=== PATIENT | male | born 1955 | race Caucasian/White ===

== ENCOUNTER 2017-05-25 15:52 | Emergency (ER) | payer OTHER ==
[2017-05-25 16:05] VITALS: BP 135/68
[2017-05-25] MEDS ORDERED: Ibuprofen TAB* 400 MG PO ONE (16:22)
--- NOTE | 2017-05-25 16:35 | UC ---
Lower Extremity/Ankle HPI - HPI Summary HPI Summary: 62 year old male with history of MS, restless leg syndrome here after a fall from a ladder. Reports he landed on his left ankle from a short ladder that was about 2.5 feet high. He reports he couldnt bear weight on the same leg. He hopped on his right foot. No head trauma but noted abrasion to his left hand. Tetanus UTD. - History of Current Complaint Chief Complaint: UCLowerExtremity Stated Complaint: ANKLE INJURY Time Seen by Provider: 05/25/17 16:10 Hx Obtained From: Patient Onset/Duration: Sudden Onset Severity Initially: Mild Aggravating Factor(s): Ambulation Alleviating Factor(s): Rest - Allergies/Home Medications Allergies/Adverse Reactions: Allergies Allergy/AdvReac Type Severity Reaction Status Date / Time Meperidine [From Demerol HCl] Allergy unknown Verified 05/25/17 16:05 reaction PMH/Surg Hx/FS Hx/Imm Hx Previously Healthy: Yes - Surgical History Surgical History: Yes Surgery Procedure, Year, and Place: HERNIA . HERNIA REPAIR 04/24/14. LT ELBOW SURGERY 07/05/14 - Family History Known Family History: Positive: None - Social History Alcohol Use: Daily Alcohol Amount: 1-2 GLASS OF WINE DAILY Substance Use Type: None Smoking Status (MU): Never Smoked Tobacco Have You Smoked in the Last Year: No - Immunization History Most Recent Tetanus Shot: UTD Review of Systems Constitutional: Negative Skin: Negative Eyes: Negative ENT: Negative Respiratory: Negative Cardiovascular: Negative Gastrointestinal: Negative Genitourinary: Negative Motor: Negative Neurovascular: Negative Musculoskeletal: Decreased ROM, Edema Neurological: Negative Psychological: Negative All Other Systems Reviewed And Are Negative: Yes Physical Exam Triage Information Reviewed: Yes Vital Signs: Initial Vital Signs Temp 36.7 C 05/25/17 16:01 Pulse 90 05/25/17 16:01 Resp 18 05/25/17 16:01 BP 135/68 05/25/17 16:01 Pulse Ox 100 05/25/17 16:01 Eye Exam: Normal ENT Exam: Normal Neck exam: Normal Neck: Positive: Nontender Respiratory: Positive: Chest non-tender Cardiovascular: Positive: RRR Abdominal Exam: Normal Abdomen Description: Positive: Nontender, No Organomegaly Musculoskeletal: Positive: Other: - TTP over lateral posterior malleolus, Mild swelling DP/TP intact BCPR pain with ranging over ankle No laceartion or abrasion to foot Left hand dorsal abrasion (ring removed) no tenderness over the area. SILT in s/s/sp/dp/ta No C/T/L spine tenderness, no hip/pelvis tenderness Re-Evaluation - Re-Evaluation First Eval Re-Evaluation Time: 17:20 - Patient has calcaneus fracutre on XR. No evidence of other injury to back, no c/t/l spine tenderness. Lower Extremity Course/Dx - Course Course Of Treatment: Patient with calcaneus. CT done for follow up. Will apply CAM boot, and instructions for NWB status until ortho evaluation. - Differential Dx/Diagnosis Differential Diagnosis/HQI/PQRI: Contusion, Sprain, Strain Provider Diagnoses: Left ankle sprain. ICE. Elevate. Pain meds. XR. Reassess Discharge - Discharge Plan Condition: Good Disposition: HOME Prescriptions: Ibuprofen TAB* [Motrin TAB* 600 MG] 600 mg PO Q6H PRN 28 Days #20 tab PRN Reason: Pain - Mild To Moderate oxyCODONE/Acetamin 5/325 MG* [Percocet 5/325 TAB*] 2 tab PO Q8H PRN 5 Days #12 tab MDD 4 PRN Reason: Pain - Moderate To Severe Patient Education Materials: Calcaneal Fracture (ED) Referrals: Major Reyes MD [Primary Care Provider] -
--- NOTE | 2017-05-25 17:09 | RAD ---
INDICATION: Left ankle injury. TECHNIQUE: 3 views of the left ankle were obtained. FINDINGS: There is diffuse soft tissue swelling. There is a comminuted impacted fracture of the calcaneus. No additional fractures are seen. IMPRESSION: COMMINUTED FRACTURE OF THE CALCANEUS. RECOMMEND CT IMAGING FOR FURTHER EVALUATION.
--- NOTE | 2017-05-25 17:36 | RAD ---
INDICATION: Traumatic left calcaneal fracture. COMPARISON: Comparison is made with a prior x-ray study of the left ankle of the same date. TECHNIQUE: Contiguous axial sections were obtained of the left ankle. Images were reconstructed in the sagittal and coronal planes. FINDINGS: There is diffuse soft tissue swelling present. There is a severely comminuted fracture of the calcaneus with the fracture involving the anterior, mid and posterior aspects of the calcaneus. There are fracture lines in the transverse and horizontal planes and there is impaction of the fracture fragments. The fracture extends to the subtalar joint. There is depression of the articular surface of the calcaneus at the level of the posterior facet of approximately 3 mm. The talus appears intact. No additional fractures are noted. IMPRESSION: SEVERELY COMMINUTED DISPLACED INTRA-ARTICULAR FRACTURE OF THE CALCANEUS WITH DEPRESSION OF THE POSTERIOR ARTICULAR SURFACE OF THE CALCANEUS ALONG THE POSTERIOR ASPECT OF THE SUBTALAR JOINT.
== END 2017-05-25 18:00 | disposition home or self-care (01) ==
LOC: UCEAST 15:52
DX: S93.402A Sprain of unspecified ligament of left ankle, initial encounter (principal); S92.062A Displaced intraarticular fracture of left calcaneus, initial encounter for closed fracture; W11.XXXA Fall on and from ladder, initial encounter; Y92.9 Unspecified place or not applicable; Z88.5 Allergy status to narcotic agent
CPT/HCPCS: 99213; A9270-GY; G0463

== ENCOUNTER → 2017-06-03 07:39 | Day surgery (SDC) | payer OTHER ==
[~2017-06-03 07:39] MED LIST: Acetaminophen TAB* 325 MG ONE; Acetaminophen TAB* 325 MG PO ONE; Buffered Lidocaine 0.9% SYRIN* 5 ML/SYR SYRINGE INTRADERM ONE; Buffered Lidocaine 0.9% SYRIN* 5 ML/SYR SYRINGE ONE; Bupivacaine 0.25% SDV* 30 ML ONE; Bupivacaine 0.5% SDV PF* 30 ML VIAL ONE; Desflurane* 240 ML INH ONE; DiMENhydriNATE IV* 50 MG/ML VIAL IV PUSH PRN; EPHEDrine (Pressors)* 50 MG/ML VIAL ONE; Famotidine IV* 10 MG/ML 2 ML (20 mg) IV ONE; Famotidine IV* 10 MG/ML 2 ML (20 mg) ONE; HYDROcodone/ACETAMIN 5-325 MG* 1 TAB PO PRN; HYDROmorphone INJ* 1 MG/ML CARPUJECT SYRINGE IV PRN; Ibuprofen TAB* 600 MG PO PRN; Ketorolac INJ* 30 MG/ML 1 ML VIAL ONE; Lidocaine 1% INJ* 10 MG/ML 30 ML SDV ONE; Lidocaine 2% PF * 5 ML VIAL ONE; Midazolam* 1 MG/ML 2 ML VIAL (2 MG) ONE; Ondansetron INJ* 2 MG/ML VIAL IV PRN; Ondansetron INJ* 2 MG/ML VIAL ONE; Rocuronium* 10 MG/ML VIAL ONE; Sodium Citrate/Citric Acid* 15 ML UDC ONE; Sodium Citrate/Citric Acid* 15 ML UDC PO ONE; Sterile Water for Inj* 10 ML ONE; ceFAZolin 2 GM PREMIX (*) 2 GM/50 ML BAG IVPB ONE; fentaNYL* 50 MCG/ML 2 ML VIAL (100 MCG VIAL) IV PRN; fentaNYL* 50 MCG/ML 2 ML VIAL (100 MCG VIAL) ONE; oxyCODONE TAB* 5 MG TAB PO PRN; oxyCODONE/Acetamin 5/325 MG* TAB PO PRN
--- NOTE | 2017-06-03 12:14 | OP ---
Operative Report - Blank - Operative Report Date of Operation: 06/03/17 Note: Operative Report Patient: Alfa Lindsay Date of : 55 Date of surgery: 06/03/17 Surgeon: Curt Vidal MD Operations Staff Specialist Security: VIRGIL Duggan. Anesthesiologist: Gissel Callaway M.D. PREOPERATIVE DIAGNOSIS: Left calcaneus fracture. POSTOPERATIVE DIAGNOSIS: Left calcaneus fracture. OPERATION: Open reduction internal fixation of left calcaneus fracture. ANESTHESIA: General endotracheal anesthesia with regional nerve block. IMPLANTS: 2 Synthes 3.5 mm screws. 2 Synthes 4.0 mm cannulated screws. 2 Synthes 4.5 mm cannulated screws. TOURNIQUET TIME: Calf tourniquet, less than an hour and a half to 225 mmHg. SPECIMENS: None. ESTIMATED BLOOD LOSS: Minimal. COMPLICATIONS: None. STATUS: Stable from the operating room to the recovery room and then home. INDICATIONS FOR PROCEDURE: Alfa sustained the above-mentioned injury. Both operative and non operative treatment alternatives were reviewed. Further, the nature and risks of surgery were reviewed in careful detail, in the office as well as the pre- operative holding area. Our discussions regarding the risks of surgery included , but were not limited to, infection, wound problems, nerve injury, neuroma, RSD , persistent symptoms, and even the remote chance of catastrophic complication, including loss of limb. DESCRIPTION OF PROCEDURE: The patient was seen in the preoperative holding unit and informed written consent was obtained. The appropriate extremity was marked. The patient was then brought to the operating room and carefully positioned on the operating room table. Anesthesia was induced. We was then positioned lateral on the operating room table. All bony prominences were padded with great care. A chlorhexidine pre-scrub was performed followed by prep with chloraprep and drape in standard sterile fashion. A surgical safety pause was then conducted in which we confirmed the appropriate patient, extremity, planned procedure, availability of equipment, indication and administration of prophylactic antibiotics, and DVT prophylaxis in the form of a compression boot on the non- surgical extremity. We started by placing a well-padded calf tourniquet 3 finger breaths beneath the fibular head. We Then did an Esmarch exsanguination of the limb and inflated the tourniquet. We utilized fluoroscopy throughout the procedure. We began with a fluoroscopic assessment of the calcaneus to assess the alignment. We then made an incision in the sinus tarsi to visualize the fracture, the posterior facet, and the anterior process of the calcaneus. We carefully mobilized the fracture fragments. The peroneal tendons were pushed out laterally and we mobilized these tendons and protected them throughout the procedure. We used an osteotomy to mobilize the fracture across the primary fracture line. A Schanz was placed into the tuberosity, which coupled with direct manipulation of the tuberosity using an AO elevator, allowed us to correct the shortened tuberosity and correct the varus heel deformity. We then reduced the posterior facet, elevating the depressed and flipped fragment of the joint. We visualized the joint to confirm the reduction. Provisional k wire fixation was placed. We then confirmed the reduction using multiple fluoroscopic views, including lateral, Broden's, and a Canela heel view. Once we were pleased with the alignment and reduction, we placed the hardware. We placed to 3.5 mm cortical screws across the posterior facet into the sustentaculum. We then placed 2 4.0 mm cannulated kickstand screws. I then placed a 4.5 mm cannulated screw to hold the superior tuberosity reduced to the inferior tuberosity. I then placed a longitudinal 4.5 mm cannulated screw to maintain the calcaneal length. The provisional fixation was then removed and the reduction held nicely. Final fluoroscopic images were obtained. We then inspected the peroneal tendons and they were noted to be sitting appropriately behind the fibula and stable with circumduction of the ankle. We then irrigated copiously and closed in layers using 3-0 Monocryl for the deep layer, 3-0 monocryl for the subdermal layer and 3-0 nylon for the percutaneous skin incisions, and a skin stapler for the sinus Tarsi incision. A sterile dressing was then applied followed by a splint with the ankle in neutral position. The patient was then awakened from anesthesia and transferred to the recovery room in stable condition. There were no complications. All needle and sponge counts were correct at the end of the case. ATTESTATION: I attest I was present and scrubbed and performed the entire procedure myself. POSTOPERATIVE PLAN: Alfa will be kept nonweightbearing for an anticipated duration of 6 weeks. He will follow up in 2 weeks for likely suture removal, Steri-Strip application , and transition into a nonweightbearing short leg cast.
[2017-06-03 14:17] VITALS: BP 123/68
--- NOTE | 2017-06-04 01:32 | PM ---
OPERATIVE PROCEDURE: DATE OF SERVICE: 06/03/17 PROCEDURE: Postoperative pain control procedure requested by Dr. Curt Vidal for surgery. The patient under-went left foot calcaneus open reduction internal fixation procedure. He underwent left-sided popliteal sciatic nerve block under ultrasound guidance for the controlling of postoperative pain control. The patient denies use of anticoagulants, history of coagulopathy, or use of antibiotics for the treatment of systemic infections currently. He notes, otherwise, no contraindications to regional anesthesia. He does have a history of MS, but this was discussed with his neurologist, who did not see any contraindications to proceeding with the nerve block. The risks and benefits of the nerve block such as bleeding, bruising, infection , nerve injury were discussed with the patient, who verbalized understanding and elected to proceed. Informed consent was obtained. DESCRIPTION OF PROCEDURE: Ultrasound was used to locate the left popliteal artery as well as the left popliteal sciatic nerve and lateral peroneal nerve. Subsequently, a 21-gauge 2-inch EchoStim needle was used to instill a total of 30 cc of 0.5% bupivacaine plain into the areas surrounding the popliteal, sciatic, and lateral peroneal nerves. Aspirate was negative for heme throughout the procedure. There were no paresthesias. The patient tolerated the procedure well with no focal neurological deficits or paresthesias. He did have relief of his prior ankle pain post nerve block. There was no intravascular or intraneural injection. [id number]/CPS #: [id number] MTDD
--- NOTE | 2017-06-04 07:36 | RAD ---
INDICATION: Left calcaneus fracture, fall COMPARISONS: May 25, 2017 TECHNIQUE: Fluoroscopy was provided for a surgical procedure. Total fluoroscopy time is: 78.3 seconds FINDINGS: Spot images demonstrate internal fixation of the calcaneus. IMPRESSION: FLUOROSCOPY WAS PROVIDED FOR A SURGICAL PROCEDURE CPT II Codes: 6045F
== END | disposition home or self-care (01) ==
LOC: OR 07:39
PROVIDERS: ATTEND Orthopaedic Surgery
DX: S92.062A Displaced intraarticular fracture of left calcaneus, initial encounter for closed fracture (principal); G35 Multiple sclerosis; G47.33 Obstructive sleep apnea (adult) (pediatric); I83.90 Asymptomatic varicose veins of unspecified lower extremity; D69.6 Thrombocytopenia, unspecified; G25.81 Restless legs syndrome; W11.XXXA Fall on and from ladder, initial encounter; Y92.9 Unspecified place or not applicable
CPT/HCPCS: 76000; A9270-GY; C1713; C1776; J0690; J1885; J2250; J2405; J3010

== ENCOUNTER 2023-01-13 18:08 | Observation (INO) ==
[2023-01-14 01:51] LABS: ABS Basophils 0.1 10^3/uL (0.0-0.1); ABS Eosinophils 0.2 10^3/uL (0.0-0.5); ABS Lymphocytes 1.4 10^3/uL (1.0-4.8); ABS Monocytes 0.4 10^3/uL (0.0-1.1); ABS Neutrophils 5.1 10^3/uL (1.5-7.6); ABS Nucleated RBC 0.01 10^3/ul; Eosinophil % 3.2 %; Hematocrit 39.7 % (38-53); Hemoglobin 13.6 g/dL (13.2-16.3); Mean Corpuscular Hemoglobin 32.8 pg (27-33); Mean Corpuscular Hgb Conc 34.3 g/dL (31-36); Mean Corpuscular Volume 95.4 fL (80-97); Mean Platelet Volume 8.5 fL (7.5-11.2); Nucleated Red Blood Cells % 0.1 /100 WBC (0.0-0.4); Platelet Count 305 10^3/uL (150-450); Red Blood Count 4.16 10^6/uL (4.06-5.63); Red Cell Distribution Width 13.2 % (12-17); White Blood Count 7.2 10^3/uL (3.6-10.2)
[2023-01-14 02:09] LABS: Albumin 3.8 g/dL (3.2-5.2); Albumin/Globulin Ratio 1.3 (1-3); C Reactive Protein 9.23 mg/L (<8.01); Calcium 9.1 mg/dL (8.6-10.3); Creatinine, Serum 0.9 mg/dL (0.67-1.17); Potassium 3.9 mmol/L (3.5-5.0); Total Bilirubin 0.3 mg/dL (0.2-1.0); Total Protein 6.8 g/dL (6.4-8.9); eGFR CKD-EPI 93.6 (>60)
[2023-01-14] MEDS ORDERED: Vancomycin 1,250 MG in NS 0.9% 250 ml 250 ML IVPB ONE (02:36)
[2023-01-14] MEDS ORDERED: Vancomycin per Pharmacy 1 EA NOTE FOLLOW UP PRN (02:57)
[2023-01-14] MEDS ORDERED: ceFAZolin 1 GM ADVAN 1 GM ADDV.VIAL IVPB ONE (03:29)
[2023-01-14] MEDS ORDERED: Albuterol HFA INHALER 8 gm MDI INH PRN (03:37)
[2023-01-14] MEDS: ceFAZolin 1 GM ADVAN 1 GM in NS 0.9% 50 ML 50 ML IVPB SCH ×4 (03:39→21:48)
[2023-01-14] MEDS ORDERED: Iohexol 350 (CONTRAST) 500 ML MDV IV ONE (03:43)
[2023-01-14] MEDS: Enoxaparin 40 MG/0.4 ML SYR SUBCUT SCH (06:22)
[2023-01-14] MEDS: CMCS: Mirabegron 25 mg ER TAB (NF) PO SCH (10:34)
[2023-01-14] MEDS: Cholecalciferol (VIT D3) 1,000 unit TAB PO SCH (10:35)
[2023-01-14] MEDS: DALFAMPRIDINE 10 MG PO SCH ×2 (10:45→20:35)
[2023-01-14] MEDS: Vancomycin 1000 MG in NS 0.9% 250 ML IVPB SCH (12:24)
[2023-01-15] MEDS: Vancomycin 1000 MG in NS 0.9% 250 ML IVPB SCH (00:06)
[2023-01-15] MEDS: Enoxaparin 40 MG/0.4 ML SYR SUBCUT SCH (05:32)
[2023-01-15] MEDS: ceFAZolin 1 GM ADVAN 1 GM in NS 0.9% 50 ML 50 ML IVPB SCH ×3 (05:32→21:12)
[2023-01-15 05:57] LABS: Hematocrit 39.4 % (38-53); Hemoglobin 13.4 g/dL (13.2-16.3); Mean Corpuscular Hemoglobin 32.5 pg (27-33); Mean Corpuscular Volume 95.7 fL (80-97); Mean Platelet Volume 8.4 fL (7.5-11.2); Platelet Count 301 10^3/uL (150-450); Red Blood Count 4.11 10^6/uL (4.06-5.63)
[2023-01-15 06:15] LABS: Albumin 3.8 g/dL (3.2-5.2); Albumin/Globulin Ratio 1.3 (1-3); C Reactive Protein 5.3 mg/L (<8.01); Creatinine, Serum 0.95 mg/dL (0.67-1.17); Potassium 4.4 mmol/L (3.5-5.0); Total Bilirubin 0.3 mg/dL (0.2-1.0); Total Protein 6.8 g/dL (6.4-8.9); eGFR CKD-EPI 87.7 (>60)
[2023-01-15] MEDS: Cholecalciferol (VIT D3) 1,000 unit TAB PO SCH (08:02)
[2023-01-15] MEDS: CMCS: Mirabegron 25 mg ER TAB (NF) PO SCH (08:03)
[2023-01-15] MEDS: DALFAMPRIDINE 10 MG PO SCH ×2 (08:03→21:13)
[2023-01-15] MEDS ORDERED: Vancomycin Trough Check NOTE FOLLOW UP ONE (11:30)
[2023-01-16] MEDS: ceFAZolin 1 GM ADVAN 1 GM in NS 0.9% 50 ML 50 ML IVPB SCH (06:02)
[2023-01-16] MEDS: Enoxaparin 40 MG/0.4 ML SYR SUBCUT SCH (06:02)
[2023-01-16 07:13] LABS: C Reactive Protein 3.93 mg/L (<8.01); Calcium 9.3 mg/dL (8.6-10.3); Creatinine, Serum 1.15 mg/dL (0.67-1.17); Potassium 4.4 mmol/L (3.5-5.0); eGFR CKD-EPI 69.8 (>60)
[2023-01-16 07:27] LABS: ABS Basophils 0.1 10^3/uL (0.0-0.1); ABS Eosinophils 0.2 10^3/uL (0.0-0.5); ABS Monocytes 0.8 10^3/uL (0.0-1.1); ABS Neutrophils 9.1 10^3/uL (1.5-7.6); Eosinophil % 1.9 %; Hematocrit 39.2 % (38-53); Hemoglobin 13.4 g/dL (13.2-16.3); Lymphocyte % 9.1 %; Mean Corpuscular Hemoglobin 32.8 pg (27-33); Mean Corpuscular Hgb Conc 34.1 g/dL (31-36); Mean Platelet Volume 8.7 fL (7.5-11.2); Platelet Count 300 10^3/uL (150-450); Red Blood Count 4.08 10^6/uL (4.06-5.63); Red Cell Distribution Width 13.4 % (12-17); White Blood Count 11.3 10^3/uL (3.6-10.2)
[2023-01-16] MEDS: Cholecalciferol (VIT D3) 1,000 unit TAB PO SCH (08:00)
[2023-01-16] MEDS: CMCS: Mirabegron 25 mg ER TAB (NF) PO SCH (08:00)
[2023-01-16] MEDS: DALFAMPRIDINE 10 MG PO SCH (08:45)
[2023-01-16 09:15] VITALS: BP 153/71
[2023-01-16 10:55] LABS: ABS Basophils 0.1 10^3/uL (0.0-0.1); ABS Eosinophils 0.2 10^3/uL (0.0-0.5); ABS Lymphocytes 1.1 10^3/uL (1.0-4.8); ABS Monocytes 0.6 10^3/uL (0.0-1.1); ABS Neutrophils 8.2 10^3/uL (1.5-7.6); ABS Nucleated RBC 0.01 10^3/ul; Eosinophil % 1.9 %; Hematocrit 41.2 % (38-53); Hemoglobin 13.5 g/dL (13.2-16.3); Lymphocyte % 10.5 %; Mean Corpuscular Hemoglobin 32.9 pg (27-33); Mean Corpuscular Hgb Conc 32.8 g/dL (31-36); Mean Corpuscular Volume 100.2 fL (80-97); Mean Platelet Volume 8.8 fL (7.5-11.2); Nucleated Red Blood Cells % 0.1 /100 WBC (0.0-0.4); Platelet Count 265 10^3/uL (150-450); Red Blood Count 4.11 10^6/uL (4.06-5.63); Red Cell Distribution Width 13.8 % (12-17); White Blood Count 10.2 10^3/uL (3.6-10.2)
== END 2023-01-16 13:50 | disposition home or self-care (01) ==
LOC: ED 18:08 → EDHOLD 18:08 → SUATTDRO 01-14 00:02 → MED 01-14 03:56
PROVIDERS: ADMIT Hospitalist; ATTEND Internal Medicine